=== PATIENT | male | born 1965 | race African-American/Black ===

== ENCOUNTER 2025-02-28 01:16 | Emergency (ER) | payer OTHER ==
[2025-02-28 01:30] VITALS: BP 127/90; PULSE 98; RESP 18; TEMP 98.2; BMI 23.9
[2025-02-28] MEDS ORDERED: ACETAMINOPHEN 325 MG TABLET (FP) ONE (01:51)
[2025-02-28] MEDS: ACETAMINOPHEN 325 MG TABLET (FP) PO ONE (01:53)
[2025-02-28] MEDS ORDERED: BACITRACIN 0.9 GM PACKET ONE (03:51)
[2025-02-28] MEDS: BACITRACIN ZINC 15 GM TUBE TOPICAL OINTMENT TP ONE (03:54)
== END 2025-02-28 04:12 | disposition home or self-care (01) ==
LOC: JER 01:16
PROC: 0H9GXZZ Drainage of Left Hand Skin, External Approach (ICD-10-PCS; principal; 2025-02-28)
DX: L03.012 Cellulitis of left finger (principal)
CPT/HCPCS: 10060; 73110-TC-LT-FY; 73130-TC-LT-FY; 99283-25